=== PATIENT | female | born 1940 | race African-American/Black ===

== ENCOUNTER 2017-06-27 12:25 | Outpatient (CLI) | payer MEDICARE ==
--- NOTE | 2017-06-27 16:04 | CT ---
NONCONTRAST CT PULMONARY LUNG SCAN: DATE: 06/27/17. HISTORY: Low TSH level. The patient has 50+ year history of smoking. COMPARISON: None available. FINDINGS: There is a ground-glass density seen within the right upper lobe which abuts the superior aspect of t he major fissure. There is associated small approximately 7 mm nodule within the area of ground-glas s density. There are also a few ground-glass densities seen within the left upper lobe. There is mild linear scarring versus atelectasis in the right middle lobe and lingula. No additional pulmonary nodule or mass is seen in the lungs bilaterally. There is no pleural effusio n seen. Vascular calcifications are seen in the thoracic aorta involving the great vessels as well as coronar y arteries. There is limited evaluation of the mediastinal structures and vasculature due to lack of intravenous contrast, but no definite enlarged lymph nodes are seen by CT size criteria. A 1.2 cm nodule was seen within the anterior aspect of the left hepatic lobe with a subcentimeter, to o small to characterize hypodense lesion in the right hepatic lobe, difficult to further characterize on this nonenhanced CT scan exam. There is a sclerotic lesion seen within the T11 vertebral body with a suggestion of interdigitated ma rgins, and this probably represents a prominent bone island. No additional lytic or sclerotic osseou s lesions are present. There is evidence of right mastectomy. IMPRESSION: 1. Lung RADS category 3, probably benign findings. There are ground-glass opacities in the upper lo bes bilaterally, larger in size on the right, with associated approximately 7 mm pulmonary nodule ass ociated with the area of ground-glass density in the right upper lobe. Findings could be attributabl e to infectious process, and an atypical infectious process is a possibility. Short followup 6-month low-dose CT scan examination is recommended to ensure resolution of the ground-glass densities. 2. Lung RADS category S - right mastectomy. 3. Lung RADS category S, prominent vascular calcifications. 4. Lung RADS category S, difficult to characterize hypodense lesions within each lobe of the liver. POS: MADELINE
== END 2017-06-27 12:26 | disposition home or self-care (01) ==
LOC: CT 12:25
PROVIDERS: ATTEND Internal Medicine
DX: Z87.891 Personal history of nicotine dependence (principal); R94.6 Abnormal results of thyroid function studies; R93.3 Abnormal findings on diagnostic imaging of other parts of digestive tract; R91.8 Other nonspecific abnormal finding of lung field; Z90.11 Acquired absence of right breast and nipple
CPT/HCPCS: G0297

== ENCOUNTER 2017-07-13 10:22 | Outpatient (CLI) | payer MEDICARE ==
[2017-07-13] MEDS ORDERED: Iopamidol 370 76% 100 ML VIAL ONE (13:40)
--- NOTE | 2017-07-13 14:57 | CT ---
CT ABDOMEN AND PELVIS WITH AND WITHOUT IV CONTRAST: Date: 07/13/17 HISTORY: Liver nodule. Breast cancer, right mastectomy. FINDINGS: Lung bases are unremarkable. No calcified gallstones are seen. The spleen, pancreas, adrenal glands, and left kidney appear normal . A small low density in the right renal cortex likely represents a cyst. There are two low density lesions in the medial segment of the left lobe of the liver, the larger sophia suring about 12.0 mm. There is a 6.0 mm low density lesion in the posterior aspect of the right lobe of the liver and a 5.0 mm peripheral nodule in the anterolateral aspect of the right lobe of the live r. These lesions do not demonstrate findings of simple cyst. There is questionable enhancement in the largest lesion on the postcontrast images. No free air or free fluid is seen in the abdomen or pelvis. There is an 11.0 mm left paraaortic lymph node. Small bowel not abnormally dilated. There are vascular calcifications without evidence of aneu rysmal dilatation of the abdominal aorta. There is fecal material in the rectosigmoid. Mild diverticu losis is present. Patient is post hysterectomy. There are degenerative changes in the spine. There is compression of L4 vertebral body. A sclerotic f ocus, likely a bone island, is seen at the T11 vertebral body. IMPRESSION: 1. Indeterminate liver lesions. Given the history of breast cancer, the possibility of metastatic di sease cannot be excluded. 2. Right renal cyst. 3. Left paraaortic lymphadenopathy. 4. Colonic diverticulosis. 5. Further evaluation with PET scan would be helpful. POS: MADELINE
== END 2017-07-13 10:23 | disposition home or self-care (01) ==
LOC: BICCT 10:22
PROVIDERS: ATTEND Internal Medicine
DX: K76.89 Other specified diseases of liver (principal); N28.1 Cyst of kidney, acquired; K57.30 Diverticulosis of large intestine without perforation or abscess without bleeding; R59.0 Localized enlarged lymph nodes
CPT/HCPCS: 74170; 82565

== ENCOUNTER 2017-07-21 11:54 | Outpatient (CLI) | payer MEDICARE | END 2017-07-21 11:55 | disposition home or self-care (01) | LOC: BICRAD 11:54 | PROVIDERS: ATTEND Internal Medicine | DX: S32.049A Unspecified fracture of fourth lumbar vertebra, initial encounter for closed fracture (principal); M47.896 Other spondylosis, lumbar region | CPT/HCPCS: 72100 ==

== ENCOUNTER 2017-08-09 11:40 | Outpatient (CLI) | payer MEDICARE ==
--- NOTE | 2017-08-09 14:28 | PET ---
WHOLE BODY PET CT: CLINICAL HISTORY: Indeterminate liver lesion and lung nodules. COMPARISON: Reference is made to prior CT exams 07/13/17 and 06/27/17. FINDINGS: There is appropriate biodistribution of radiotracer activity. FINDINGS: Pulmonary parenchymal opacities are redemonstrated. These findings are not hypermetabolic with a mil d degree of metabolic activity visualized. Morphology of the opacity/nodular densities is incomplete ly assessed on the basis of the attenuation correction nondiagnostic CT imaging. The known hypodensi ty of the hepatic parenchyma does not demonstrate increased metabolic activity favoring a nonaggressi ve process. There are no hypermetabolic masses or lesions otherwise depicted. IMPRESSION: 1. No hypermetabolic abnormalities to indicate malignancy. 2. Redemonstration of pulmonary parenchymal opacities which demonstrate mild metabolic activity, not hypermetabolic. These findings will require continued CT surveillance to confirm complete resolutio n. 3. Small hepatic hypodensity is not hypermetabolic, favoring a benign/nonaggressive process. 6 month follow-up CT would prove useful to confirm size stability. POS: MADELINE
== END 2017-08-09 11:41 | disposition home or self-care (01) ==
LOC: PET 11:40
PROVIDERS: ATTEND Internal Medicine
DX: S32.049A Unspecified fracture of fourth lumbar vertebra, initial encounter for closed fracture (principal); K76.9 Liver disease, unspecified; R91.1 Solitary pulmonary nodule; R93.8 Abnormal findings on diagnostic imaging of other specified body structures; M85.88 Other specified disorders of bone density and structure, other site
CPT/HCPCS: 77080; 78815; A9552

== ENCOUNTER 2017-09-02 13:33 | Outpatient (CLI) | payer MEDICARE ==
[~2017-09-02 13:33] MED LIST: Gadobenate Dimeglumine 529 MG/1 ML (20ML VIAL) ONE
== END 2017-09-02 13:34 | disposition home or self-care (01) ==
LOC: BICMRI 13:33
PROVIDERS: ATTEND Internal Medicine Gastroenterology
DX: R93.2 Abnormal findings on diagnostic imaging of liver and biliary tract (principal); F40.240 Claustrophobia; K76.9 Liver disease, unspecified; N28.1 Cyst of kidney, acquired; M89.8X8 Other specified disorders of bone, other site
CPT/HCPCS: 74183; A9579

== ENCOUNTER 2017-09-26 10:02 | Outpatient (CLI) | payer MEDICARE | END 2017-09-26 10:03 | disposition home or self-care (01) | LOC: BICMAMMO 10:02 | PROVIDERS: ATTEND Internal Medicine | DX: Z12.31 Encounter for screening mammogram for malignant neoplasm of breast (principal); Z80.3 Family history of malignant neoplasm of breast; Z85.3 Personal history of malignant neoplasm of breast | CPT/HCPCS: 77063; 77067 ==

== ENCOUNTER 2017-11-16 12:54 | Outpatient (CLI) | payer MEDICARE ==
--- NOTE | 2017-11-16 14:13 | CT ---
CHEST CT SCAN WITHOUT IV CONTRAST: History: 77-year-old female with history of nodule, history of breast cancer with right mastectomy. Comparison: PET/CT scan 08-09-17, lung CT scan 06-27-17 FINDINGS: There are stable bilateral upper lobe ground glass opacity changes, slightly more prominent on the ri ght side than the left with two foci in the left upper lobe. No evidence for new pulmonary nodule or pleural effusion. Three vessel coronary artery calcific disease. Two liver cysts. No pleural or peric ardial effusion. IMPRESSION: Stable bilateral multiple upper lobe ground glass opacity changes. Minimal stable linear and chronic changes in the anterior lung bases. Stable liver cysts. No new process. Consider 6-month follow up ex amination for further assessment. POS: MADELINE
== END 2017-11-16 12:55 | disposition home or self-care (01) ==
LOC: CT 12:54
PROVIDERS: ATTEND Internal Medicine Critical Care Medicine
DX: R91.1 Solitary pulmonary nodule (principal); K76.89 Other specified diseases of liver
CPT/HCPCS: 71250

== ENCOUNTER 2018-02-17 10:58 | Outpatient (CLI) | payer MEDICARE ==
--- NOTE | 2018-02-17 15:45 | NM ---
NUCLEAR MEDICINE BONE SCAN WHOLE BODY: (SKELETAL SCINTIGRAPHY) 02/17/18 HISTORY: 77-year-old female with abnormal finding on diagnostic imaging of other specified body structure. Right breast cancer in 2001. R93.89. TECHNIQUE: IV injection of [id number]: 32.6 mCi 3 hour delayed whole body skeletal scintigraphy in anterior and posterior views. FINDINGS: There is patchy increased uptake in two adjacent levels in the lower thoracic spine, approximately T 10 and T11. T10 has uptake mostly on the right side, while T11 uptake is diffuse. There is symmetrica lly mildly increased uptake in the posterior elements in the lower lumbar spine at approximately L4, which probably represents bilateral facet DJD. There are no other suspicious asymmetric foci of incre ased uptake in the rest of the skeleton. Much of the pelvis is obscured by a large amount of activity within a full urinary bladder. No postvo id images have been performed. IMPRESSION: 1. Nonspecific finding of increased uptake involving two levels in the lower thoracic spine, sweta roximately T10 and T11. 2. These could represent compression fractures, discitis/osteomyelitis, metastatic lesions, or discogenic degenerative changes. 3. Recommend further evaluation with MRI of the lower thoracic spine (preferably with and withou t contrast unless contraindicated). AMBREEN Peterson POS: [facility]
== END 2018-02-17 10:59 | disposition home or self-care (01) ==
LOC: NM 10:58
PROVIDERS: ATTEND Internal Medicine
DX: R93.89 Abnormal findings on diagnostic imaging of other specified body structures (principal)
CPT/HCPCS: 78306; A9503

== ENCOUNTER 2018-03-02 14:14 | Outpatient (CLI) | payer MEDICARE ==
--- NOTE | 2018-03-02 15:51 | MRI ---
PRE AND POSTCONTRAST ENHANCED MR IMAGES OF THORACIC SPINE: 03/02/18 HISTORY: Abnormal bone scan. Multiplanar and multisequence pre and postcontrast enhanced MRI images thoracic spine demonstrate the spinal cord to be unremarkable. There is some old chronic end plate irregularity and marrow changes seen in the T10 level. No associa dahlia enhancement or increased acute changes seen as seen on T2 weighted sequences. At the T11 level, there is some slight superior end plate irregularity. No evidence of significant en hancement seen. Some end plate changes seen compatible with likely Schmorl's node. No evidence of sig nificant marrow changes seen to suggest an acute process or metastatic disease. IMPRESSION: T10 and T11 changes most compatible with some chronic vertebral changes and superior end plate irregu larity. No evidence of metastatic disease seen. POS: MADELINE
== END 2018-03-02 14:15 | disposition home or self-care (01) ==
LOC: BICMRI 14:14
PROVIDERS: ATTEND Internal Medicine
DX: R93.7 Abnormal findings on diagnostic imaging of other parts of musculoskeletal system (principal)
CPT/HCPCS: 72157; 82565; A9579

== ENCOUNTER 2018-06-21 13:36 | Outpatient (CLI) | payer MEDICARE ==
--- NOTE | 2018-06-21 14:41 | CT ---
CT CHEST WITHOUT CONTRAST CLINICAL INDICATION: Pulmonary nodule COMPARISON: 11/16/2017 FINDINGS: Aorta: Lack of intravenous contrast limits evaluation of vascular structures. Dense vascular calcific ations are seen in the coronary arteries as well as involving the thoracic aorta. The thoracic aorta is normal in caliber. Lungs: Groundglass parenchymal densities within the posterior aspect of the right upper lobe as well as a smaller groundglass l density in the left upper lobe are again seen and stable compared to prior study. These parenchymal densities were also seen on PET/CT examination on 08/09/2017 and is not significant change from that examination. No new parenchymal opacities are seen in the lungs bilaterally. A few nonspecific pleural-based nodular densities are seen at the posterior aspect of th e right lung base. Linear densities are seen in the right middle lobe and in the lingula which may represent scarring or atelectasis. Mediastinum: No enlarged lymph nodes are appreciated on this nonenhanced CT exam. Thyroid gland: Grossly normal nonenhanced CT appearance. Osseous structures: Mild compression fracture superior endplate T11 vertebral body is again seen with prominent sclerotic density again seen in this vertebral body likely related to a bone island. Mild degenerative changes are seen in the spine. Chest wall: Postsurgical changes related to right mastectomy are again noted. Surgical clip right axi llary region is again seen. Upper abdomen: Stable hypodense lesions in the left hepatic lobe. CT thorax is overall stable compared to the prior exam. IMPRESSION: 1. Stable groundglass densities in the upper lobes bilaterally. Neoplastic process cannot be entirely excluded. 2. Stable hypodense lesions left hepatic lobe. 3. Stable compression fracture superior endplate T11 vertebral body.
--- NOTE | 2018-06-21 15:01 | CT ---
Exam: Postcontrast soft tissue neck CT HISTORY: Lymphadenopathy COMPARISON: None FINDINGS: Visualized brain parenchyma is unremarkable Bilateral ocular lenses are appropriately located. Both globes are intact. Retrobulbar fat is a. Symm etric attenuation of the optic nerves and ocular rectus muscles Visualized paranasal sinuses and mastoid air cells are adequately aerated No evidence of mucosal abnormality with regards the nasopharynx. There is mild bilateral palatine ton sillar hypertrophy. There are calcifications as well as a hypodense lesion, submucosal location at the level of the left palatine tonsil. The hypodense component measures 0.5 cm. There is also a 3 mm hypodensity along the lateral aspect of the right palatine tonsil. Findings are nonspecific. Parapharyngeal fat is maintained. Symmetric attenuation of the parotid and submandibular glands. Symmetric attenuation structure cleido mastoid muscles Grossly the great vessels of the neck are patent Mild heterogeneity throughout the thyroid gland, incompletely evaluated. No evidence of lymphadenopathy by size criteria There are varying degrees of central canal stenosis and neural foraminal narrowing on the basis of de generative change. Evaluation is limited by technique No evidence of lymphadenopathy in the left and right neck soft tissues, based upon size criteria There are patchy groundglass irregular marginated opacities in the visualized lung parenchyma. Refer to separate chest CT report for further detail. IMPRESSION: 1. No evidence of lymphadenopathy in the left and right neck, based on size criteria 2. Mild bilateral palatine tonsillar hypertrophy. Nonspecific calcifications in the left palatine ton roney. Nonspecific hypodensities in both palatine tonsils without evidence of active inflammation. 2. Heterogeneous thyroid gland. Nonemergent thyroid ultrasound is recommended. 4. Lung parenchymal opacities as described above. Refer to separate chest CT report for further detai l
== END 2018-06-21 13:37 | disposition home or self-care (01) ==
LOC: CT 13:36
PROVIDERS: ATTEND Internal Medicine Critical Care Medicine
DX: R59.0 Localized enlarged lymph nodes (principal); J35.1 Hypertrophy of tonsils; R91.8 Other nonspecific abnormal finding of lung field; J98.4 Other disorders of lung; K76.9 Liver disease, unspecified; M48.54XA Collapsed vertebra, not elsewhere classified, thoracic region, initial encounter for fracture; J35.8 Other chronic diseases of tonsils and adenoids
CPT/HCPCS: 70491; 71250

== ENCOUNTER 2018-10-23 10:52 | Outpatient (CLI) | payer MEDICARE ==
--- NOTE | 2018-10-23 14:11 | MMO ---
Bilateral MAMMO Bilat Screen [facility]. CLINICAL HISTORY: Patient is 78 years old and is seen for screening. The patient has the following family history of breast cancer: 3 sisters. The patient has a history of right Mastectomy in 2001. VIEWS: The views performed were: bilateral craniocaudal with tomosynthesis and bilateral mediolateral oblique with tomosynthesis. FILMS COMPARED: The present examination has been compared to prior imaging studies performed at [facility] on 09/16/2014, 09/22/2015, 09/22/2016 and 09/26/2017. This study has been interpreted with the assistance of computer-aided detection. MAMMOGRAM FINDINGS: There are scattered fibroglandular densities. There are stable benign appearing calcifications seen in the left breast. There are no suspicious masses, suspicious calcifications, or new areas of architectural distortion. IMPRESSION: THERE IS NO MAMMOGRAPHIC EVIDENCE OF MALIGNANCY. A ROUTINE FOLLOW-UP MAMMOGRAM IN 1 YEAR IS RECOMMENDED. THE RESULTS OF THIS EXAM WERE SENT TO THE PATIENT. ACR BI-RADS Category 2 - Benign finding MAMMOGRAPHY NOTE: 1. A negative mammogram report should not delay a biopsy if a dominant of clinically suspicious mass is present. 2. Approximately 10% to 15% of breast cancers are not detected by mammography. 3. Adenosis and dense breasts may obscure an underlying neoplasm. Reported by: ARABELLA PLATA MD Electonically Signed: [id number]
== END 2018-10-23 10:53 | disposition home or self-care (01) ==
LOC: BICMAMMO 10:52
PROVIDERS: ATTEND Internal Medicine
DX: Z12.31 Encounter for screening mammogram for malignant neoplasm of breast (principal); Z80.3 Family history of malignant neoplasm of breast; Z90.11 Acquired absence of right breast and nipple
CPT/HCPCS: 77063; 77067

== ENCOUNTER 2018-12-26 08:32 | Outpatient (CLI) | payer MEDICARE ==
--- NOTE | 2018-12-26 09:50 | CT ---
CT THORAX NONCONTRAST: DATE: 12/26/2018 HISTORY: 78-year-old female follow-up of bilateral upper lobe pulmonary lesions. Telephone discussion with Dr. Jorge A Curtis at 9:37 AM on 12/26/2018 COMPARISON: 06/27/2017, 11/16/2017, and 06/21/2018. FINDINGS: The patchy infiltrate-like lesion located in the posterior segment of the right upper lobe, abutting the major fissure, has a solid component which appears larger than before. Measurements are difficult because of the very irregular shape and ill-defined margins, but the solid component measur es very roughly 2 x 2.5 x 1.5 cm. Although growth is difficult to appreciate between each successive CT, there has been slow interval growth when the 06/27/2017 CT is compared to the current C T. This solid component is surrounded by groundglass component which is much wider than the solid component. The area and volume covered by the groundglass component probably has not significantly ch anged since 06/27/2017. In the contralateral left lung, there are 2 small, mild, patchy infiltrate-like lesions, in the apica l posterior segment of the left upper lobe. These have not significantly changed since 06/27/2017. There are no new pulmonary lesions. There is diffuse mild bronchiectasis in all lobes and all lung zo carrillo. No bullae. No pleural effusion or pneumothorax. Trachea and major bronchi are patent and clear. No cardiomegaly. No thoracic aortic aneurysm. Nonspecific mildly enlarged mediastinal lymph no alexis are unchanged. Again noted is the sclerotic lesion at T11 vertebral body, plus Schmorl's nodes and other indentations of T10 and T11 vertebral bodies, unchanged. Again noted is the right mastectom y defect. IMPRESSION: 1) the moderate sized groundglass lesion containing central solid component, located in posterior seg ment of right upper lobe, is suspicious for adenocarcinoma spectrum. Appropriate action should be taken. 2) the 2 small patchy lesions in the apical posterior segment of the left upper lobe is unchanged sin ce 06/27/2017. They are indeterminate. They could represent pulmonary scars or adenocarcinoma in situ. Continued follow-up is recommended for these.
== END 2018-12-26 08:33 | disposition home or self-care (01) ==
LOC: BICCT 08:32
PROVIDERS: ATTEND Internal Medicine Critical Care Medicine
DX: R91.1 Solitary pulmonary nodule (principal)
CPT/HCPCS: 71250

== ENCOUNTER 2019-10-31 09:28 | Outpatient (CLI) | payer MEDICARE ==
--- NOTE | 2019-10-31 12:09 | CT ---
CT CHEST WITHOUT CONTRAST: Date: 10/31/2019 HISTORY: Follow-up lung nodule. COMPARISON: 12/26/2018, 06/25/2018, and 11/16/2017. FINDINGS: Absence of IV contrast reduces the sensitivity of exam, particularly for evaluation of mediastinal, h ilar, and vascular structures. Vascular calcifications are again seen without evidence of aneurysmal dilatation of the thoracic aort a. No pleural or pericardial effusions are seen. The ground-glass parenchymal opacities in the posterior aspect of the right upper lobe and in the lef t upper lobe are stable. The solid component in the ground-glass opacity in the right upper lobe appe ars larger compared to the exam of 12/26/2018 measuring about 17.0 mm (previously about 15.0 mm). Mil d chronic changes in the medial aspect of the right middle lobe and lingula are again seen. No new pu lmonary lesions are seen. Sclerotic lesion in the T11 vertebral body is redemonstrated with stable compression fracture involvi ng the superior end plate. Hypodense lesions in the visualized portions of the liver are stable. Postop changes of right mastectomy are again seen. IMPRESSION: Stable ground-glass densities with mild interval increase in size of the solid component of the densi ty in the right upper lobe since 12/26/2018. POS: AH
== END 2019-10-31 09:29 | disposition home or self-care (01) ==
LOC: BICCT 09:28 → TBSIIMAG 09:29
PROVIDERS: ATTEND Internal Medicine Critical Care Medicine
DX: R91.1 Solitary pulmonary nodule (principal); J98.4 Other disorders of lung
CPT/HCPCS: 71250

== ENCOUNTER 2020-04-25 08:40 | Outpatient (CLI) | payer MEDICARE | END 2020-04-25 08:41 | disposition home or self-care (01) | LOC: BICMAMMO 08:40 | PROVIDERS: ATTEND Internal Medicine | DX: Z12.31 Encounter for screening mammogram for malignant neoplasm of breast (principal); Z80.3 Family history of malignant neoplasm of breast; Z90.11 Acquired absence of right breast and nipple | CPT/HCPCS: 77063; 77067 ==

== ENCOUNTER 2020-04-25 09:53 | Outpatient (CLI) | payer MEDICARE ==
[2020-04-25] MEDS ORDERED: Iopamidol 370 76% 100 ML VIAL ONE (12:07)
== END 2020-04-25 09:54 | disposition home or self-care (01) ==
LOC: CT 09:53
PROVIDERS: ATTEND Internal Medicine
DX: R22.1 Localized swelling, mass and lump, neck (principal); E04.2 Nontoxic multinodular goiter; R91.8 Other nonspecific abnormal finding of lung field
CPT/HCPCS: 70491; Q9967

== ENCOUNTER 2020-05-23 12:13 | Outpatient (CLI) | payer MEDICARE | END 2020-05-23 12:14 | disposition home or self-care (01) | LOC: BICULT 12:13 | PROVIDERS: ATTEND Internal Medicine | DX: E04.2 Nontoxic multinodular goiter (principal); I77.9 Disorder of arteries and arterioles, unspecified | CPT/HCPCS: 76536; 93880 ==

== ENCOUNTER 2020-10-29 10:27 | Outpatient (CLI) | payer MEDICARE | END 2020-10-29 10:28 | disposition home or self-care (01) | LOC: BICCT 10:27 | PROVIDERS: ATTEND Internal Medicine Critical Care Medicine | DX: R91.8 Other nonspecific abnormal finding of lung field (principal) | CPT/HCPCS: 71250 ==

== ENCOUNTER 2021-06-05 10:11 | Outpatient (CLI) | payer MEDICARE | END 2021-06-05 10:12 | disposition home or self-care (01) | LOC: BICMAMMO 10:11 | PROVIDERS: ATTEND Internal Medicine | DX: Z12.31 Encounter for screening mammogram for malignant neoplasm of breast (principal); Z13.820 Encounter for screening for osteoporosis; Z78.0 Asymptomatic menopausal state; E04.1 Nontoxic single thyroid nodule; F03.90 Unspecified dementia, unspecified severity, without behavioral disturbance, psychotic disturbance, mood disturbance, and anxiety; M85.851 Other specified disorders of bone density and structure, right thigh; M85.852 Other specified disorders of bone density and structure, left thigh; Z90.11 Acquired absence of right breast and nipple; Z80.3 Family history of malignant neoplasm of breast | CPT/HCPCS: 70551; 76536; 77063; 77067; 77080 ==

== ENCOUNTER → 2021-08-12 | Day surgery (SDC) | payer MEDICARE ==
[2021-08-07 13:57] VITALS: BMI 19.1
[~2021-08-12] MED LIST changes: -Gadobenate Dimeglumine 529 MG/1 ML (20ML VIAL) ONE; +Lidocaine 1% PF 5 ML VIAL ONE; +Sodium Bicarbonate 2.5 MEQ/5 ML VIAL ONE
== END | disposition home or self-care (01) ==
LOC: ULT 12:11
PROVIDERS: ATTEND Student in an Organized Health Care Education/Training Program
PROC: 0G9G3ZX Drainage of Left Thyroid Gland Lobe, Percutaneous Approach, Diagnostic (ICD-10-PCS; principal; 2021-08-12)
DX: E04.2 Nontoxic multinodular goiter (principal); I10 Essential (primary) hypertension; E78.5 Hyperlipidemia, unspecified; Z85.3 Personal history of malignant neoplasm of breast; Z87.891 Personal history of nicotine dependence; Z79.899 Other long term (current) drug therapy
CPT/HCPCS: 10005; 10006; 88173